=== PATIENT | male | born 1980 | race Caucasian/White ===

== ENCOUNTER 2018-04-11 11:03 | Emergency (ER) | payer SELFPAY ==
[~2018-04-11] VITALS: Ht 190.5 cm; Wt 122.7 kg
[~2018-04-11 11:03] MED LIST: NO HOME MEDICATIONS; ZOFRAN 4MG T4 MG/TAB PO
[2018-04-11 11:09] VITALS: TEMP 98.3
[2018-04-11] MEDS ORDERED: PERCOCET 325 MG1 TA2 PO (15:39)
[2018-04-11 15:57] VITALS: BP 137/91; PULSE 85
== END 2018-04-11 16:05 | disposition home or self-care (01) ==
LOC: COL.ER 11:03
DX: S61.412A Laceration without foreign body of left hand, initial encounter (principal); S81.012A Laceration without foreign body, left knee, initial encounter; Z23 Encounter for immunization; W01.0XXA Fall on same level from slipping, tripping and stumbling without subsequent striking against object, initial encounter; Y92.828 Other wilderness area as the place of occurrence of the external cause

== ENCOUNTER → 2018-10-25 | Outpatient (CLI) | payer SELFPAY ==
[~2018-10-25] MED LIST changes: +PERCOCET 325 MG1 TA2 PO
== END ==
LOC: COL.RAD 10:00
DX: M25.562 Pain in left knee (principal)